=== PATIENT | male | born 1985 | race Hispanic/Latino ===

== ENCOUNTER 2021-09-27 13:00 | Inpatient (IN) | payer OTHER ==
[~2021-09-27] VITALS: Ht 172.7 cm; Wt 82.6 kg
[2021-09-27] MEDS ORDERED: CLINDAMYCIN IVPB 600MG/50ML 50 ML IV SCH (13:30)
[2021-09-27] MEDS ORDERED: ACETAMINOPHEN WITH CODEINE 1 TAB TAB PO ONE (13:30)
[2021-09-27] MEDS ORDERED: IBUPROFEN 800 MG TAB PO ONE (13:30)
[2021-09-27] MEDS ORDERED: 0.9%NACL 1000ML 1,000 ML IV ONE (13:30)
[2021-09-27 14:07] LABS: BASOPHILS % (AUTO) 0.4 % (0.0-5.0); EOSINOPHILS % (AUTO) 0.2 % (0.0-8.0); HEMATOCRIT 40.5 % (42-54); LYMPHOCYTES % (AUTO) 10.9 % (21.0-51.0); MEAN CORPUSCULAR HEMOGLOBIN 26.6 pg (27.0-33.0); MEAN CORPUSCULAR HGB CONC 33.6 g/dL (32.0-36.0); MEAN CORPUSCULAR VOLUME 79.3 fL (79-99); MONOCYTES % (AUTO) 7.8 % (3.0-13.0); NEUTROPHILS % (AUTO) 79.9 % (40.0-77.0); PLATELET COUNT (AUTO) 443 K/uL (130-400); RED BLOOD CELL COUNT(AUTO) 5.11 MIL/uL (4.50-6.20); RED CELL DISTRIBUTION WIDTH 13.7 % (11.0-15.5); WHITE BLOOD COUNT (AUTO) 17.7 K/uL (4.8-10.8)
[2021-09-27 14:16] LABS: CREATININE 1.3 mg/dL (0.5-1.5); POTASSIUM 3.5 mmol/L (3.5-5.1)
[2021-09-27 14:29] LABS: ALBUMIN 3.5 g/dL (3.5-5.0); BILIRUBIN,TOTAL 1.1 mg/dL (0.2-1.0); TOTAL PROTEIN, SERUM 9.7 g/dL (6.0-8.3)
[2021-09-27 14:37] LABS: CRP QUANTITATIVE 180.9 mg/L (0.00-9.0)
[2021-09-27] MEDS ORDERED: KETOROLAC 15MG/ML VIAL (15MG/ML) IM PRN (15:30)
[2021-09-27] MEDS ORDERED: VANCOMYCIN PROTOCOL PER PHARMACY IV SCH (15:30)
[2021-09-27] MEDS: 0.9%NACL 1000ML 1,000 ML IV SCH (15:30)
[2021-09-27] MEDS ORDERED: BACITRACIN 28.4 GM OINT TP ONE (15:30)
[2021-09-27] MEDS ORDERED: VANCOMYCIN 1.75GM/250ML NS IV ONE ×2 (16:00)
[2021-09-27 16:52] VITALS: BP 113/61
[2021-09-27 17:15] LABS: APPEARANCE,URINE Clear (CLEAR); BILIRUBIN,URINE Negative (NEGATIVE); COLOR,URINE Yellow (YELLOW); GLUCOSE, URINE (UA) Negative (NEGATIVE); KETONES,URINE Negative (NEGATIVE); LEUKOCYTE ESTERASE ,URINE Negative (NEGATIVE); NITRATE,URINE Negative (NEGATIVE); OCCULT BLOOD,URINE Negative (NEGATIVE); PH,URINE 5.5 (5.0-8.0); PROTEIN,URINE Negative (NEGATIVE); UROBILINOGEN,URINE 0.2 mg/dL (0.2-1.0)
[2021-09-27 17:20] LABS: AMPHET/METH SCREEN,URINE POSITIVE (NEGATIVE); BARBITURATE SCREEN, URINE NEGATIVE (NEGATIVE); BENZODIAZEPINES SCREEN,URINE NEGATIVE (NEGATIVE); CANNABINOID SCREEN,URINE POSITIVE (NEGATIVE); COCAINE SCREEN,URINE NEGATIVE (NEGATIVE); OPIATE SCREEN,URINE POSITIVE (NEGATIVE); PHENCYCLIDINE SCREEN,URINE NEGATIVE (NEGATIVE)
[2021-09-27] MEDS: ZOSYN 3.375GM +NS 50ML IV SCH (18:46)
[2021-09-27 20:15] VITALS: BP 96/55
[2021-09-27] MEDS ORDERED: MV-M1TAB20 PO (20:27)
[2021-09-27] MEDS ORDERED: QUET300T2 PO (20:27)
[2021-09-27] MEDS ORDERED: COGENTIN PO (20:27)
[2021-09-27] MEDS ORDERED: QUET50TA PO (20:27)
[2021-09-27] MEDS ORDERED: ALPRAZOLAM 0.5 MG TABLET PO ONE (21:00)
[2021-09-27] MEDS: KETOROLAC 15MG/ML VIAL (15MG/ML) IV PRN (21:11)
[2021-09-28 00:07] VITALS: BP 94/50
[2021-09-28] MEDS: VANCOMYCIN 750MG VIAL IVPB SCH ×2 (00:32→08:48)
[2021-09-28] MEDS: 0.9% NACL 250ML 250 ML IV SCH ×2 (00:32→08:48)
[2021-09-28] MEDS: ZOSYN 3.375GM +NS 50ML IV SCH ×2 (01:39→10:39)
[2021-09-28 04:01] VITALS: BP 98/68
[2021-09-28] MEDS: 0.9%NACL 1000ML 1,000 ML IV SCH (04:50)
[2021-09-28 07:30] VITALS: BP 94/56
[2021-09-28 10:40] VITALS: BP 96/61
[2021-09-28 10:50] LABS: HEPATITIS A IGM ANTIBODY Non-Reactive (Negative); HEPATITIS C ANTIBODY Reactive (NEGATIVE)
[2021-09-28 10:51] LABS: HEPATITIS B CORE IGM ANTIBODY Non-Reactive (Negative); HEPATITIS B SURFACE ANTIGEN Non-Reactive (Negative)
[2021-09-28] MEDS ORDERED: GADOTERATE MEGLUMINE 10 MMOL/20 ML VIAL IV ONE (11:36)
[2021-09-28] MEDS ORDERED: QUETIAPINE FUMARATE 25 MG TAB PO SCH (11:54)
[2021-09-28 12:05] LABS: BASOPHILS % (AUTO) 0.7 % (0.0-5.0); HEMATOCRIT 40.1 % (42-54); LYMPHOCYTES % (AUTO) 23.4 % (21.0-51.0); MEAN CORPUSCULAR HEMOGLOBIN 26.8 pg (27.0-33.0); MEAN CORPUSCULAR HGB CONC 33.2 g/dL (32.0-36.0); MEAN CORPUSCULAR VOLUME 80.8 fL (79-99); MONOCYTES % (AUTO) 10.3 % (3.0-13.0); NEUTROPHILS % (AUTO) 62.9 % (40.0-77.0); PLATELET COUNT (AUTO) 327 K/uL (130-400); RED BLOOD CELL COUNT(AUTO) 4.96 MIL/uL (4.50-6.20); RED CELL DISTRIBUTION WIDTH 13.9 % (11.0-15.5)
[2021-09-28] MEDS: KETOROLAC 15MG/ML VIAL (15MG/ML) IV PRN (12:06)
[2021-09-28] MEDS ORDERED: PHARMACY COMMUNICATION MISC SCH (12:30)
[2021-09-28 12:31] LABS: ALBUMIN 3.2 g/dL (3.5-5.0); BILIRUBIN,TOTAL 0.7 mg/dL (0.2-1.0); CREATININE 1.2 mg/dL (0.5-1.5); CRP QUANTITATIVE 149.3 mg/L (0.00-9.0); POTASSIUM 4.2 mmol/L (3.5-5.1); TOTAL PROTEIN, SERUM 8.9 g/dL (6.0-8.3)
[2021-09-28] MEDS ORDERED: 0.9%NACL 100ML 100 ML IV SCH (16:00)
[2021-09-28] MEDS ORDERED: VANCOMYCIN 500MG+NS 100ML 100 ML IV SCH (16:00)
[2021-09-28] MEDS ORDERED: QUETIAPINE FUMARATE 100 MG TAB PO SCH (21:00)
[2021-09-28] MEDS ORDERED: BENZTROPINE 0.5MG TAB PO SCH (21:00)
[2021-09-29] MEDS ORDERED: QUETIAPINE FUMARATE 25 MG TAB PO SCH (08:00)
== END 2021-09-28 17:00 | disposition left against medical advice (07) | DRG 872 ==
LOC: EDH 13:00 → EDHIP 13:01 → 3AH 16:41
PROVIDERS: ADMIT Internal Medicine; ATTEND Internal Medicine
DX: A41.01 Sepsis due to Methicillin susceptible Staphylococcus aureus (principal); N17.9 Acute kidney failure, unspecified; M62.82 Rhabdomyolysis; L03.115 Cellulitis of right lower limb; L03.113 Cellulitis of right upper limb; L03.312 Cellulitis of back [any part except buttock and flank]; L03.811 Cellulitis of head [any part, except face]; I38 Endocarditis, valve unspecified; L02.92 Furuncle, unspecified; F41.9 Anxiety disorder, unspecified; F17.210 Nicotine dependence, cigarettes, uncomplicated; F19.10 Other psychoactive substance abuse, uncomplicated; R79.89 Other specified abnormal findings of blood chemistry; B19.20 Unspecified viral hepatitis C without hepatic coma; I77.6 Arteritis, unspecified; Z83.3 Family history of diabetes mellitus; Z82.49 Family history of ischemic heart disease and other diseases of the circulatory system
CPT/HCPCS: 36415; 71045; 72100; 73630; 73700; 73723; 80053; 80074; 80202; 80305; 81001; 81003; 82550; 83605; 84145; 85025; 86140; 86701; 87040; 87070; 87076; 87077; 87186; 87390; 93925; 93970; G0378; J1885; J2543; J3370; J3490; J7030; J7050